=== PATIENT | female | born 1960 | race Caucasian/White ===

== ENCOUNTER 2017-04-21 21:57 | Emergency (ER) | payer OTHER | END 2017-04-22 00:45 | disposition home or self-care (01) | LOC: D.ER 21:57 | DX: L02.211 Cutaneous abscess of abdominal wall (principal); E11.9 Type 2 diabetes mellitus without complications ==

== ENCOUNTER 2017-04-22 16:58 | Emergency (ER) | payer OTHER | END 2017-04-22 18:27 | disposition home or self-care (01) | LOC: D.ER 16:58 | DX: L03.314 Cellulitis of groin (principal) ==

== ENCOUNTER 2018-12-13 00:22 | Inpatient (IN) | payer OTHER ==
[2018-12-13] VITALS (8 sets, daily range): BP systolic 122–171; BP diastolic 58–109; Ht 162.6 cm; Wt 106.2 kg
[~2018-12-13] VITALS: Ht 162.6 cm; Wt 106.2 kg
--- NOTE | ~2018-12-13 | HEMODYNAMI ---
PATIENT:DORA SAEED MEDICAL RECORD: [id number] : 56 LOCATION:[facility] D.2117 [facility]# [id number] ADMISSION DATE: 12/13/18 Generatedon:12/13/201810:48 Patient name: DORA SAEED Patient #: [id number] : 1960 Date of study: 12/13/2018 Page: Of Hemodynamic Procedure Report Patient Data Patient Demographics Procedure consent was obtained First Name: DORA Gender: Female Last Name: DARLIN : 1960 Middle Initial: J Age: 58 year(s) Patient #: [id number] Race: SSN: [id number] Additional ID: [id number] Contact details Address: [address] [place] [address] State: [place] City: [facility] Zip code: [address] Past Medical History Allergies Allergen Reaction Date Comments Reported Other allergy 12/13/2018 naproxen Admission Admission Data Admission Date: 12/13/2018 Admission Time: 2:34 Arrival Date: 12/13/2018 Arrival Time: 0:00 Admit Source: Emergency Insurance Payor: Private department health insurance Room #: D.2117 [facility] #: [id number] Height (in.): 64 BSA: 2.12 (m2) Height (cm.): 162.56 BMI: 41.63 (kg/m2) Weight (lbs.): 242.51 Weight (kg.): 110 Lab Results Lab Result Date: 12/13/2018 Lab Result Time: 0:46 Biochemistry Name Units Result Min Max BUN mg/dl 16 --(---*)-- 7 18 Creatinine mg/dl 0.9 --(-*--)-- 0.6 1.3 CBC Name Units Result Min Max Hematocrit % 45.3 --(-*--)-- 42 54 Hemoglobin g/dl 16.3 --(--*-)-- 13.5 17.5 Procedure Procedure Types Cath Procedure Diagnostic Procedure [facility] w/Coronaries PCI Procedure Coronary Stent Coronary Stent Initial Procedure Description Procedure Date Procedure Date: 12/13/2018 Procedure Start Time: 10:08 Procedure End Time: 10:45 Procedure Staff Name Function Bernabe Betts RT Monitor Migel Maldonado RN Nurse Kingston Frey MD Performing Physician Jaret Cunningham RT Scrub Procedure Data Cath Procedure Fluoroscopy Diagnostic fluoroscopy Total fluoroscopy Time: 6.6 time: 6.6 min min Diagnostic fluoroscopy Total fluoroscopy dose: dose: 1509 mGy 1509 mGy Contrast Material Contrast Material Type Amount (ml) Isovue 300 134 Entry Location Entry Primary Successful Side Size Upsize Upsize Entry Closure Succes sful Closure Location (Fr) 1 (Fr) 2 (Fr) Remarks Device Remarks Femoral Right 5 Fr 6 Fr Exoseal artery Short Estimated blood loss: 20 ml Diagnostic catheters Device Type Used For End Catheter Placement MULTIPACK JL 4.0 5Fr Procedure catheter MULTIPACK 3DRC 5Fr Procedure catheter MULTIPACK Pigtail 5 Fr Procedure catheter Procedure Medications Medication Administration Route Dosage Oxygen etCO2 Nasal cannula 2 l/min Lidocaine 2% added to field 20 Heparin Flush Bag added to field 2 bags (1000units/500ml NS) 0.9% NaCl I.V. 100 ml/hr Heparin Bolus I.V. 4000 units Integrilin (Bolus I.V. 9.5 ml 2mg/ml) Versed I.V. 2 mg Fentanyl I.V. 100 mcg Integrilin (Bolus 9.5 ml 2mg/ml) Versed I.V. 2 mg Integrilin Drip I.V. drip 16.8 ml/hr (75mg/100ml) Plavix P.O. 600 mg Hemodynamics Rest BSA: 2.12 (m2) HGB: 16.3 (g/dl) O2 Consumption: Estimated: 234.11 (ml/min) O2 Co nsumption indexed: Estimated:110.43 (ml/min/m) Heart Rate: 111 (bpm) Pressure Samples Time Site Value (mmHg) Purpose Heart Use Rate(bpm) 10:14 LV 157/0,20 Snapshot 111 Snapshots Pre Cath Intra NCS Post Cath Vital Signs Time Heart Resp SPO2 etCO2 NIBP (mmHg) Rhythm Pain Sedation Rate (ipm) (%) (mmHg) Status Level (bpm) 10:05:43 112 17 95 18 137/86(100) NSR 0 (11) 10(A) , No pain 10:10:09 114 19 95 37.5 139/91(108) NSR 0 (11) 10(A) , No pain 10:16:01 113 19 95 34.5 141/94(108) NSR 0 (11) 10(A) , No pain 10:21:30 102 19 95 35.2 143/93(119) NSR 0 (11) 10(A) , No pain 10:26:58 111 20 96 35.9 142/93(119) NSR 0 (11) 10(A) , No pain 10:32:24 77 23 96 31.4 139/96(114) NSR 0 (11) 10(A) , No pain 10:37:46 83 20 96 0 140/90(109) NSR 0 (11) 10(A) , No pain 10:44:24 91 31 96 0 141/92(113) NSR 0 (11) 10(A) , No pain Medications Time Medication Route Dose Verified Delivered Reason Notes Effectiveness by by 9:59:23 Oxygen etCO2 2 Kingston Lainez used for Nasal l/min [facility] Esau Maldonado RN procedure cannula 9:59:30 Lidocaine 2% added 20ml Kingston Onofre for local to vial [facility] anesthetic field MD ROLON 9:59:55 Heparin Flush added 2 Kingston Loveory used for Bag to bags [facility] procedure (1000units/500ml field MD ROLON NS) 10:00:17 0.9% NaCl I.V. 100 Kingston Lainez Per physician ml/hr [facility] Esau Maldonado RN, MD 10:07:34 Versed I.V. 2 mg Kingston Lainez for sedation [facility] Esau Maldonado RN, MD 10:07:42 Fentanyl I.V. 100 Kingston Tobinie for sedation mcg St Esau Maldonado RN, MD 10:15:46 Heparin Bolus I.V. 4000 Kingston Lainez for verif ied units [facility] Esau Maldonado RN anticoagulation with dr MD watts 10:16:58 Integrilin I.V. 9.5 Kingston Buffie for waste d (Bolus 2mg/ml) ml St Esau Maldonado RN antiplatelet .5 ml of MD therapy vial 10:25:55 Versed I.V. 2 mg Kingston Onofre for sedation ShanteEsau Frey MD, MD 10:27:47 Integrilin I.C 9.5 Kingston [place] waste d (Bolus 2mg/ml) ml St Esau Frey antiplatelet 0.5 ml MD ROLON therapy of vial 10:35:58 Integrilin Drip I.V. 16.8 Kingston Lainez for (75mg/100ml) drip ml/hr [facility] Esau Maldonado RN antiplatelet therapy 10:47:47 Plavix P.O. 600 Kingston Lainez for mg [facility] Esau Maldonado RN antiplatelet therapy Procedure Log Time Note 9:28:05 Informed consent obtained and on chart 9:35:48 Admit Source: Emergency department 9:35:50 Arrival Date: 12/13/2018 12:00:00 AM 9:36:02 Patient Weight : 242.51 lbs 9:36:34 Patient Height : 64 inches 9:36:58 Insurance Payor : Private health insurance 9:42:12 Lab Result : Hemoglobin 16.3 g/dl 9:42:12 Lab Result : Hematocrit 45.3 % 9:42:12 Lab Result : BUN 16 mg/dl 9:42:12 Lab Result : Creatinine 0.9 mg/dl 9:42:37 Diagnostic Cath Status : Urgent 9:42:50 ACC Patient presents with Non-STEMI CCS Anginal Class 4--Inability to carry out any physical activity w/o angina. Angina may occur at rest. 9:42:55 Procedure Status Urgent Heart Cath (IP). 9:42:59 Bernabe Betts RT(R) (CV) sent for patient. Start room use. 9:43:01 Time tracking: Regular hours (M-F 7:00 - 5:00) 9:43:04 Plan of Care:Hemodynamics will remain stable., Cardiac rhythm will remain stable., Comfort level will be maintained., Respiratory function will remain adequate., Patient/ family verbilizes understanding of procedure., Procedure tolerated without complication., Recovers from procedure without complications.. 9:43:24 H&P Date Dictated: 12/13/2018 Within 30 days and on chart.. 9:49:03 ACCPatient has been prescribed/administered the following anti-anginal medication within the last 2 weeks: None 9:49:34 Patient received from PCU to CCL 1 Alert and oriented. Tansferred to table in Supine position. 9:49:35 Warm blankets applied, and radha hugger turned on for patient comfort. 9:49:36 Correct patient and procedure confirmed by team. 9:49:37 ECG and BP/O2 sat monitors applied to patient. 9:49:41 Pre-procedure instructions explained to patient. 9:49:42 Pre-op teaching completed and patient verbalized understanding. 9:49:44 Family in waiting room. 9:49:46 Patient NPO since Midnight. 9:49:57 Patient allergic to Other allergynaproxen 9:59:23 Oxygen 2 l/min etCO2 Nasal cannula was administered by Migel Maldonado RN; used for procedure; 9:59:30 Lidocaine 2% 20ml vial added to field was administered by Kingston Frey MD; for local anesthetic; 9:59:55 Heparin Flush Bag (1000units/500ml NS) 2 bags added to field was administered by Kingston Frey MD; used for procedure; 10:00:17 0.9% NaCl 100 ml/hr I.V. was administered by Migel Maldonado RN; Per physician; 10:02:19 Is the patient allergic to Iodine/contrast media? No. 10:02:57 Is patient on blood thinner?No 10:03:03 Patient diabetic? Yes. 10:03:04 If diabetic: On Metformin? No 10:03:24 Patient not . Patient is over age 55. 10:03:26 ----Pre-sedation anethsthesia assessment.---- 10:03:37 Previous problem with sedation/anesthesia? No ? 10:03:39 Snore? Yes 10:03:41 Sleep apnea? No 10:03:44 Deviated septum? No 10:03:45 Opens mouth fully? Yes 10:03:46 Sticks out tongue? Yes 10:03:56 Dentures? No ? 10:04:05 Pre procedure: right dorsailis pedis pulse 2+ Normal; easily identifiable; not easily obliterated 10:04:10 Patient pain scale 3/10 ?. 10:04:25 IV patent on arrival in right hand with 0.9% NaCl at O. 10:04:28 Lab results completed and on chart. 10:04:35 Right groin area was prepped with chlora-prep and draped in sterile fashion 10:04:37 Alarms reviewed by RMichelle N. 10:04:38 Sharps counted by scrub and verified by R.N. 10:05:15 2) 60-89 Mildly reduced kidney function, and other findings (as for stage 1) point to kidney disease. 10:06:23 Maximum allowable contrast dose (3.7 X eGFR X 0.75)188 ml. 10:06:30 Sedation plan: IV Moderate Sedation Medication:Versed, Fentanyl 10:06:35 Physician arrived 10:06:36 Final Timeout: patient, procedure, and site verified with staff and physician. All members of the team are in agreement. 10:06:36 --------ALL STOP TIME OUT------ 10:06:40 Right groin site verified by team. 10:06:46 Fire Safety Assessment: A--An alcohol-based skin anteseptic being used preoperatively., C--Open oxygen or nitrous oxide is being used., D--An ESU, laser, or fiber-optic light is being used. 10:06:51 Physical assessment completed. ASA score P 2 - A patient with mild systemic disease as per Kingston Frey MD. 10:07:34 Versed 2 mg I.V. was administered by Migel Maldonado RN; for sedation; 10:07:42 Fentanyl 100 mcg I.V. was administered by Migel Maldonado RN; for sedation; 10:07:43 ACIST Syringe (31874) opened to sterile field. 10:07:44 Medline Cath Pack ([id number]) opened to sterile field. 10:07:45 Bag Decanter () opened to sterile field. 10:07:46 ACIST Manifold (12556) opened to sterile field. 10:07:46 ACIST Hand Control (39148) opened to sterile field. 10:07:47 Tegaderm 4 x 4 (1626W) opened to sterile field. 10:08:14 Use device set Femoral Dx 10:08:19 ACIST Syringe (78855) opened to sterile field. 10:08:28 DIAGNOSTIC Multipack 5Fr catheter set (MN7089) opened to sterile field. 10:08:31 SHEATH 5FR [place] (GUG389) opened to sterile field. 10:08:32 EMERALD Guide Wire (117-539) opened to sterile field. 10:08:38 Full Disclosure recording started 10:08:38 Procedure started. 10:08:43 Local anesthetic to right femoral artery with Lidocaine 2% by Kingston Frey MD.INITIAL ACCESS ONLY 10:08:56 A 5 Fr sheath was inserted into the Right Femoral artery 10:09:20 Zero performed for pressure channel P1 10::23 Zero performed for pressure channel P1 10:09:45 A MULTIPACK JL 4.0 5Fr catheter was advanced over the wire and used for Procedure. 10:11:20 LCA angiography performed. 10:13:44 Catheter removed. 10:13:50 A MULTIPACK 3DRC 5Fr catheter was advanced over the wire and used for Procedure. 10:13:55 RCA angiography performed. 10:13:57 Catheter removed. 10:14:02 A MULTIPACK Pigtail 5 Fr catheter was advanced over the wire and used for Procedure. 10:14:21 LV hemodynamics recorded. 10:14:23 LV gram done using SMALL 10:14:33 EF : 45 % 10:14:35 Catheter removed. 10:14:57 SHEATH 6FR [place] (MTA668) opened to sterile field. 10:14:58 WHISPER 300cm guide wire ([id number]) opened to sterile field. 10:14:59 INFLATOR Merit BasixCompak (KX6218) opened to sterile field. 10:15:11 Proceeding to intervention. 10:15:21 Sheath upsized to a 6 Fr Short. 10:15:46 Heparin Bolus 4000 units I.V. was administered by Migel Maldonado RN; for anticoagulation; verified with dr watts 10:16:17 GUIDE 6FR XBLAD 3.5 catheter ([id number]) opened to sterile field. 10:16:33 Pre PCI Site: [place] mLAD has 100% stenosis. 10:16:42 6 Fr XBLAD 3.5 guide catheter was inserted over the wire 10:16:58 Integrilin (Bolus 2mg/ml) 9.5 ml I.V. was administered by Migel Maldonado RN; for antiplatelet therapy; wasted .5 ml of vial 10:17:20 WHISPER wire advanced. 10:18:41 Wire advanced across lesion. 10:19:41 Inflate balloon Inflation number: 1 A EMERGE OTW 3.0 x 15 balloon ([id number]) was prepped and advanced across the Mid LAD 100, then inflated to 6 MIRACLE for 0:30 (min:sec) 40. 10:20:24 Vital chart was started 10:21:12 Inflation number: 2 The EMERGE OTW 3.0 x 15 balloon ([id number]) was reinflated across the Mid LAD 100, to 8 MIRACLE for 0:10 (min:sec) . 10:21:25 MULTIPLE INFLATIONS 10:23:16 VESSEL OPEN 10:25:10 Balloon removed over the wire. 10:25:55 Versed 2 mg I.V. was administered by Kingston Frey MD; for sedation; 10:27:47 Integrilin (Bolus 2mg/ml) 9.5 ml I.C was administered by Kingston Frey MD; for antiplatelet therapy; wasted 0.5 ml of vial 10::27 Place stent Inflation Number: 3 A TOMAS OTW 3.0 x 18 stent ([id number]) was prepped and advanced across the Mid LAD 90. The stent was deployed at 14 MIRACLE for 0:30 (min:sec) 0. 10:29:06 Stent catheter was removed intact over wire. 10:32:08 Place stent Inflation Number: 1 A TOMAS OTW 3.5 x 30 stent ([id number]) was prepped and advanced across the Prox LAD 99. The stent was deployed at 12 MIRACLE for 0:30 (min:sec) 0. 10:33:01 Inflation number: 1 The stent balloon was then re-inflated across the Dist LAD 98 to 4 MIRACLE for 0:10 (min:sec) 0. 10:33:05 Wire removed. 10:33:05 Stent catheter was removed intact over wire. 10:33:06 Guide catheter removed. 10:33:21 EXOSEAL 6Fr (EX600) opened to sterile field. 10:35:20 Sheath removed intact; hemostasis achieved with Exoseal to the Right Femoral artery. 10:35:22 Procedure ended.(Physican Out) 10:35:33 Fluoroscopy time 06.60 minutes. 10:35:39 Fluoroscopy dose: 1509 mGy 10:35:39 Flurop Dose total: 1509 10:35:46 Dose Area Product 35572 mGy/cm. 10:35:51 Contrast amount:Isovue 300 134ml. 10:35:54 Maximum allowable dose exceeded? No. 10:35:58 Integrilin Drip (75mg/100ml) 16.8 ml/hr I.V. drip was administered by Migel Maldonado RN; for antiplatelet therapy; 10:35:59 Sharps counted by scrub and verified by R.N. 10:38:15 ACT drawn and resulted at 188 seconds. (normal therapeutic range 180-240 seconds). 10:39:29 Insertion/operative site no bleeding no hematoma. 10:39:33 Post-op/insertion site Right Femoral artery dressed using a 4 x 4 and Tegaderm. 10:39:36 Post right femoral artery:stable 10:39:39 Post Procedure Pulses reassessed and unchanged 10:39:44 Post-procedure physical assessment completed. ASA score P 2 - A patient with mild systemic disease as per Kingston Frey MD. 10:39:49 Post procedure rhythm: sinus rhythm 10:39:52 Estimated blood loss: 20 ml 10:39:58 Patient needs reinforcement of post procedure teaching. 10:39:59 Procedure and supply charges have been captured, reviewed, submitted and are correct. 10:40:12 Procedure type changed to Cath procedure, Diagnostic procedure, LHC, LHC w/Coronaries, PCI procedure, Coronary Stent, Coronary Stent Initial 10:45:03 Vital chart was stopped 10:45:04 See physician's report for complete and final results. 10:45:07 Report given to Med II. 10:45:12 Patient transfered to Med II with Bed. 10:45:15 Full Disclosure recording stopped 10:45:15 Procedure ended. 10:45:21 End room use (Document Last) 10:45:29 ACC-PCI Only Patient was given prescriptions, or instructed by Kingston Frey MD to start/continue the following medications upon discharge: Aspirin, Plavix 10:45:41 ACCDominant side:Co-Dominant 10:46:00 ACC Pre-intervention ALICIA Flow is 0. 10:46:03 ACC Post-intervention ALICIA Flow is 3. 10:47:47 Plavix 600 mg P.O. was administered by Migel Maldonado RN; for antiplatelet therapy; Intervention Summary Intervention Notes Time ActionType Lesion and Equipment Action# Pressure Duration Attributes Used 10:19:41 Inflate Mid LAD EMERGE OTW 1 6 00:30 balloon 3.0 x 15 balloon ([id number]) 10:21:12 Reinflate Mid LAD EMERGE OTW 2 8 00:10 balloon 3.0 x 15 balloon ([id number]) 10:28:27 Place stent Mid LAD TOMAS OTW 3.0 3 14 00:30 x 18 stent ([id number]) 10:32:08 Place stent Prox LAD TOMAS OTW 3.5 1 12 00:30 x 30 stent ([id number]) 10:33:01 Reinflate Dist LAD TOMAS OTW 3.5 1 4 00:10 stent x 30 stent balloon ([id number]) Device Usage Item Name Manufacture Quantity Catalog Number Hospital Part Current M inimal Lot# / Charge Number Stock Stock Serial# Code ACIST Syringe Acist 2 32981 970937 917107 859306 2 0 (36450) Medical Systems Mismi Medline Cath Medline 1 [id number] 285746 97522 496541 5 Pack ([id number]) Bag Decanter Microtek 1 2001S 431626 07557 320467 5 (2001S) Medical Inc. ACIST Hand Acist 1 80651 745562 057346 899069 5 Control Medical (49402) Systems Inc ACIST Acist 1 76743 425884 513795 945346 5 Manifold Medical (75482) Systems Inc Tegaderm 4 x 3M 1 1626W 566129 157975 895477 5 4 (1626W) DIAGNOSTIC Cardinal 1 NJ3975 310906 06748 265678 3 0 Multipack 5Fr Health catheter set (XI9437) SHEATH 5FR Terumo 1 RJU732 678794 969130 605764 5 [place] (EFU098) EMERALD Guide Cardinal 1 502-455 567869 363468 022865 5 Wire Health (502-455) MULTIPACK JL Cardinal 1 703420 5 4.0 5Fr Health catheter MULTIPACK Cardinal 1 320154 5 3DRC 5Fr Health catheter MULTIPACK Cardinal 1 262028 5 Pigtail 5 Fr Health catheter SHEATH 6FR Terumo 1 EHE553 639201 908339 607843 4 0 [place] (THE430) WHISPER 300cm Hernandez 1 [id number] 047296 724034 285832 5 guide wire Vascular ([id number]) INFLATOR Merit 1 EB9723 712008 609515 209220 1 5 [facility] BasixCompak (VZ4926) GUIDE 6FR Cardinal 1 [id number] 353071 598285 113661 1 0 XBLAD 3.5 Health catheter (08878114) EMERGE OTW [place] 1 [id number] 050830 910486 209434 5 [id number] 3.0 x 15 Scientific balloon ([id number]) TOMAS OTW 3.0 Medtronic 1 [id number] 953381 2130481 967652 5 [id number] x 18 stent ([id number]) TOMAS OTW 3.5 Medtronic 1 [id number] 058187 0177268 624833 5 [id number] x 30 stent ([id number]) EXOSEAL 6Fr Cardinal 1 EX600 166755 104992 412363 1 0 (EX600) Health Signature Audit [place] Stage Time Signature Unsigned Intra-Procedure 12/13/2018 Bernabe Betts 10:48:03 AM RT(R) (CV) Signatures Monitor : Bernabe Betts RT Signature : Date : Time : Nurse : Migel Maldonado RN Signature : Date : Time : Performing Physician : Signature : Kingston Frey MD Date : Time : [facility] [address] [place] [address]
[2018-12-13 00:53] LABS: HEMATOCRIT 45.3 % (36.0-48.0); HEMOGLOBIN 16.3 g/dL (12-16); MCH 31.3 pg (26.0-34.0); MCV 86.9 fL (80.0-100.0); MEAN PLATELET VOLUME 11.1 fL (7.4-10.4); PLATELET COUNT 228 10x3/uL (130-400); RBC 5.21 10x6/uL (4.00-5.40); RDW 12.2 % (11.5-14.5); WBC 6.5 10x3/uL (4.8-10.8)
[2018-12-13 01:07] LABS: KETONE - SERUM SMALL mg/dL (NEGATIVE)
[2018-12-13 01:13] LABS: INR 0.86 (0.85-1.17); PROTIME 11.2 SECONDS (11.6-15.0)
[2018-12-13 01:14] LABS: D-DIMER-QUANTITATIVE 0.47 ug/mLFEU (0.20-0.54)
[2018-12-13 01:15] LABS: EOSINOPHILS 3 % (0-7); LYMPHOCYTES 48 % (15-50); MONOCYTES 8 % (2-11); NEUTROPHILS 36 % (40-80)
[2018-12-13 01:16] LABS: ALBUMIN 3.5 g/dL (3.4-5.0); ALKALINE PHOSPHATASE 180 U/L (46-116); ALT (SGPT) 31 U/L (10-68); CALC OSMOLALITY 296 mosm/kg (275-300); CALCIUM 9.2 mg/dL (8.5-10.1); CARBON DIOXIDE 23.7 mmol/L (21.0-32.0); CHLORIDE - SERUM 100 mmol/L (98-107); CKMB 1.9 U/L (0.0-3.6); CREATINE KINASE 119 UL (21-215); CREATININE - SERUM 0.9 mg/dL (0.6-1.3); MAGNESIUM - SERUM 1.6 mg/dL (1.8-2.4); PLATELET ESTIMATE NORMAL; POTASSIUM - SERUM 3.5 mmol/L (3.5-5.1); PROTEIN - SERUM 7.3 g/dL (6.4-8.2); SODIUM 138 mmol/L (136-145); TROPONIN-I 0.026 ng/mL (0.000-0.060); UREA NITROGEN 16 mg/dL (7-18); eGFR NON AFRICAN AMERICAN 68 mL/min (90-120)
[2018-12-13 01:20] LABS: GLUCOSE 462 mg/dL (74-106)
[2018-12-13 08:08] LABS: CKMB 23.6 U/L (0.0-3.6)
[2018-12-13 08:14] LABS: CREATINE KINASE 255 UL (21-215)
[2018-12-13 08:16] LABS: TROPONIN-I 0.713 ng/mL (0.000-0.060)
[2018-12-13 08:31] LABS: CALCIUM 8.5 mg/dL (8.5-10.1); CARBON DIOXIDE 18.9 mmol/L (21.0-32.0); CHLORIDE - SERUM 103 mmol/L (98-107); CREATININE - SERUM 0.7 mg/dL (0.6-1.3); SODIUM 138 mmol/L (136-145); UREA NITROGEN 13 mg/dL (7-18); eGFR NON AFRICAN AMERICAN 90 mL/min (90-120)
[2018-12-13 08:32] LABS: CALC OSMOLALITY 291 mosm/kg (275-300); GLUCOSE 383 mg/dL (74-106); POTASSIUM - SERUM 4.3 mmol/L (3.5-5.1)
[2018-12-13 09:40] LABS: BASOPHILS 0.3 % (0-2); EOSINOPHILS 0 % (0-7); HEMATOCRIT 45.1 % (36.0-48.0); HEMOGLOBIN 15.6 g/dL (12-16); IMMATURE GRANULOCYTES 0.4 % (0-5); MCH 30.2 pg (26.0-34.0); MCHC 34.6 g/dL (31.0-37.0); MCV 87.2 fL (80.0-100.0); MEAN PLATELET VOLUME 11.6 fL (7.4-10.4); MONOCYTES 2.3 % (2-11); PLATELET COUNT 247 10x3/uL (130-400); RBC 5.17 10x6/uL (4.00-5.40); RDW 12.3 % (11.5-14.5)
[2018-12-13 09:41] LABS: WBC 9.2 10x3/uL (4.8-10.8)
--- NOTE | 2018-12-13 14:30 | CN ---
PATIENT NAME:DORA SAEED MEDICAL RECORD: [id number] : 56 LOCATION:D. D.2117 ADMIT DATE: 12/13/18 ACCOUNT: [id number] CONSULTING PHYSICIAN: LYNETTE RAMÍREZ MD REFERRING PHYSICIAN: EMMA JAMES MD DATE OF CONSULTATION: 12/13/2018 HISTORY OF PRESENT ILLNESS: A 58-year-old female with history of dietary controlled diabetes as well as hypertension, awoke this morning with chest pressure and tightness, radiating to the jaw kind of shortness of breath, some nausea, found to have elevated cardiac enzymes consistent with NSTEMI. She did have intermittent pain. We are asked to see her concerning her cardiovascular status. PAST MEDICAL HISTORY: Includes: 1. History of diabetes mellitus, on no medications. 2. Hypertension, dietary controlled again. MEDICINES: None chronically. ALLERGIES: NAPROSYN. SOCIAL HISTORY: Nonsmoker, nondrinker. Does try to exercise. REVIEW OF SYSTEMS: The patient reports easy bruising but reports no swollen glands. The patient reports no fever, no night sweats, no significant weight gain, no significant weight loss. No significant exercise tolerance. The patient reports no dry eyes, no irritation, no vision change. Patient reports no difficulty hearing and no ear pain. Patient reports no frequent nose bleeds or nose and sinus problems. Patient reports on arm pain on exertion. No shortness of breath while lying down. No history of heart murmur. Patient reports no cough, no wheezing or coughing up blood. Patient reports no abdominal pain, no vomiting. Normal appetite. No diarrhea and not vomiting blood. No nausea and no constipation. Patient reports no incontinence. No difficulty urinating. No hematuria. No increased frequency. Patient reports no muscle aches. No weakness, no arthralgias, no back pain. No swelling of the extremities. Patient reports no abnormal mole, no jaundice, no rashes. Reports no loss of consciousness. No weakness and no numbness. No seizures, dizziness, or headaches. The patient reports no depression, no sleep disturbance, feeling safe in a relationship and no alcohol abuse. Patient reports on fatigue. Reports no runny nose or sinus pressure. No itching, no hives, and no frequent sneezing. PHYSICAL EXAMINATION: GENERAL: Pleasant. No acute distress, appears stated age. VITAL SIGNS: Blood pressure 157/86, pulse 114 and regular. HEENT: Normocephalic, atraumatic. NECK: No bruits noted. HEART: Regular, II/ systolic ejection murmur. LUNGS: Good air excursion. ABDOMEN: Soft, nontender. EXTREMITIES: Pulses 2+ with no edema. DIAGNOSTIC DATA: ECG shows poor R-wave progression, left axis deviation. CONSULT REPORT [id number] DORA SAEED IMPRESSION: NSTEMI. PLAN: For angiography, intervention based on above. TRANSINT:[id number] Voice Confirmation ID: [id number] DOCUMENT ID: [id number] LYNETTE RAMÍREZ MD at 1430 CC: [id number] DICTATION DATE: 12/13/18 1004 AUTO TUNE UP MECHANIC: 12/13/18 1045 ADM IN [address] [address]
--- NOTE | 2018-12-13 14:30 | OP ---
PATIENT NAME: DORA SAEED MEDICAL RECORD: [id number] :56 LOCATION:D.M2 D.2117 ADMISSION DATE:12/13/18 SURGEON: LYNETTE RAMÍREZ MD DATE OF OPERATION: 12/13/2018 PROCEDURE: Left heart catheterization, selective coronary angiography, right femoral artery approach. CATHETERS: A 5-Macedonian sheath, 5/4 left and right Jake, 5/4 pig. The procedure was well tolerated. The patient was returned to vieyra. Sheath removed. ExoSeal device placed. FINDINGS: Left ventriculography shows mid anterior wall down to the anterior apical hypokinesis. Overall, LV function reduced at 40%. CORONARY ANATOMY: LEFT MAIN: Left main is free of disease. LAD: Appears to fill just past the first diagonal, is totally occluded. CIRCUMFLEX: Codominant system, free of disease. RIGHT CORONARY ARTERY: Again, codominant, free of disease. IMPRESSION: Acute NSTEMI, Total occlusion of the LAD. PLAN: Intervention momentarily. DESCRIPTION OF PROCEDURE: A 5-Macedonian sheath was exchanged for a 6-Macedonian sheath. XB LAD 3.5 guide catheter provided excellent guide catheter support, followed by 300 cm Whisper wire placed across the totally occluded LAD down this portion of vessel. Pre-deployment balloon used was a 3.0 x 15 [place]. This showed improvement in ALICIA flow from 0 to 1, however, there was marked thrombus burden around the area. Therefore, IC Integrilin was infused. Next, is replacement in the following fashion: A 3.0 x 15 and a 3.5 x 30-mm, both Golden Eagle drug-eluting stent up to 14 atmospheres for 45 seconds. This showed excellent resolution of 100% stenosis, no significant residual. Distally, the flow improved to the apex with ALICIA flow 2. The patient was started on Integrilin drip. Sheath was closed with ExoSeal device. Plavix was loaded in the lab. TRANSINT:[id number] Voice Confirmation ID: [id number] DOCUMENT ID: [id number] LYNETTE RAMÍREZ MD at 1430 CC: [id number] DICTATION DATE: 12/13/18 1056 PULVI MIXER OPERATOR: 12/13/18 1123 ADM IN [place] [id number] [place] [address]
[2018-12-13 15:42] LABS: APPEARANCE CLEAR (CLEAR); BILIRUBIN NEGATIVE (NEGATIVE); COLOR YELLOW (YELLOW); GLUCOSE 1000 mg/dL (NEGATIVE); KETONE MODERATE mg/dL (NEGATIVE); NITRITE NEGATIVE (NEGATIVE); PROTEIN NEGATIVE (NEGATIVE); SPECIFIC GRAVITY 1.015 (1.005-1.020); UROBILINOGEN NORMAL (NORMAL)
[2018-12-14 00:10] VITALS: BP 131/81
[2018-12-14 04:00] VITALS: BP 133/83
[2018-12-14 06:29] LABS: BASOPHILS 0.2 % (0-2); EOSINOPHILS 0.2 % (0-7); HEMATOCRIT 42.2 % (36.0-48.0); HEMOGLOBIN 14.6 g/dL (12-16); IMMATURE GRANULOCYTES 0.3 % (0-5); LYMPHOCYTES 27.3 % (15-50); MCH 30.4 pg (26.0-34.0); MCHC 34.6 g/dL (31.0-37.0); MCV 87.7 fL (80.0-100.0); MEAN PLATELET VOLUME 11.2 fL (7.4-10.4); PLATELET COUNT 216 10x3/uL (130-400); RBC 4.81 10x6/uL (4.00-5.40); RDW 12.6 % (11.5-14.5); WBC 9.3 10x3/uL (4.8-10.8)
[2018-12-14 06:51] LABS: CALCIUM 8.2 mg/dL (8.5-10.1); CHLORIDE - SERUM 104 mmol/L (98-107); CREATININE - SERUM 0.7 mg/dL (0.6-1.3); MAGNESIUM - SERUM 1.6 mg/dL (1.8-2.4); PHOSPHOROUS 2.8 mg/dL (2.5-4.9); SODIUM 140 mmol/L (136-145); eGFR NON AFRICAN AMERICAN 90 mL/min (90-120)
[2018-12-14 06:53] LABS: CALC OSMOLALITY 285 mosm/kg (275-300); CARBON DIOXIDE 23.9 mmol/L (21.0-32.0); GLUCOSE 253 mg/dL (74-106); POTASSIUM - SERUM 3.4 mmol/L (3.5-5.1); UREA NITROGEN 8 mg/dL (7-18)
[2018-12-14 09:21] VITALS: BP 132/81
[2018-12-14] MEDS ORDERED: LIPITOR20 MG PO (12:24)
[2018-12-14] MEDS ORDERED: PLAVIX75 MG PO (12:24)
[2018-12-14] MEDS ORDERED: LOPRESSOR25 MG PO (12:24)
[2018-12-14] MEDS ORDERED: ASPIRIN325 MG PO (12:24)
[2018-12-14] MEDS ORDERED: GLIPIZIDE10 MG PO (12:25)
[2018-12-14] MEDS ORDERED: COZAAR25 MG PO (12:25)
[2018-12-14 13:54] VITALS: BP 91/52
--- NOTE | 2018-12-15 09:04 | MORECARE ---
CASE MANAGEMENT DISCHARGE SUMMARY PATIENT: DORA SAEED UNIT: [id number] ADM DATE: 12/13/18 AGE: 58 : 56 SEX: F ROOM/BED: D.0277 AUTHOR: PETERSON RICH PHYSICIAN: REFERRING PHYSICIAN: EMMA JAMES MD DATE OF SERVICE: 12/15/18 Discharge Plan Patient Name: DORA SAEED Facility: [facility]:[place] : 1960 Planned Disposition: Home Anticipated Discharge Date: 12/14/18 Discharge Date: 12/14/2018 Expected LOS: 1 Initial Reviewer: [email or web address] Initial Review Date: 12/15/2018 Generated: 12/15/18 10:03 am Patient Name: DORA SAEED Page 06735 at 0904 All edits/amendments must be made on the electronic document DICTATION DATE: 12/15/18902 SQUAD LEADER: SADIE 12/15/18902 RPT#: [id number] DC DATE:12/14/18 STATUS: DIS IN [facility] [address] [place] [address] END OF REPORT
== END 2018-12-14 15:30 | disposition home or self-care (01) | DRG 247 ==
LOC: D.ER 00:22 → D.M2 02:34
PROVIDERS: Family Medicine; Internal Medicine Interventional Cardiology; ADMIT Internal Medicine Nephrology; ATTEND Internal Medicine Nephrology
PROC: B2111ZZ Fluoroscopy of Multiple Coronary Arteries using Low Osmolar Contrast (ICD-10-PCS; 2018-12-13)
PROC: B2151ZZ Fluoroscopy of Left Heart using Low Osmolar Contrast (ICD-10-PCS; 2018-12-13)
PROC: 027035Z Dilation of Coronary Artery, One Artery with Two Drug-eluting Intraluminal Devices, Percutaneous Approach (ICD-10-PCS; principal; 2018-12-13 09:28)
PROC: 4A023N7 Measurement of Cardiac Sampling and Pressure, Left Heart, Percutaneous Approach (ICD-10-PCS; 2018-12-13 09:28)
DX: I21.4 Non-ST elevation (NSTEMI) myocardial infarction (principal); I25.110 Atherosclerotic heart disease of native coronary artery with unstable angina pectoris; I10 Essential (primary) hypertension; E11.9 Type 2 diabetes mellitus without complications; E83.42 Hypomagnesemia; I25.82 Chronic total occlusion of coronary artery; E66.01 Morbid (severe) obesity due to excess calories; Z68.39 Body mass index [BMI] 39.0-39.9, adult; Z87.891 Personal history of nicotine dependence

== ENCOUNTER 2019-03-18 01:08 | Emergency (ER) | payer OTHER ==
[~2019-03-18] VITALS: Ht 162.6 cm; Wt 102.3 kg
[~2019-03-18 01:08] MED LIST: ASPIRIN325 MG PO; COZAAR25 MG PO; GLIPIZIDE10 MG PO; LIPITOR20 MG PO; LOPRESSOR25 MG PO; PLAVIX75 MG PO
[2019-03-18 01:21] VITALS: Ht 162.6 cm; Wt 102.3 kg
[2019-03-18] MEDS ORDERED: GLUCOPHAGE500 MG PO (01:26)
[2019-03-18] MEDS ORDERED: SKELAXIN800 MG PO (03:45)
[2019-03-18 03:55] VITALS: BP 101/62
== END 2019-03-18 03:55 | disposition home or self-care (01) ==
LOC: D.ER 01:08
DX: S16.1XXA Strain of muscle, fascia and tendon at neck level, initial encounter (principal); V49.50XA Passenger injured in collision with unspecified motor vehicles in traffic accident, initial encounter; Y93.9 Activity, unspecified; Y92.9 Unspecified place or not applicable; E11.9 Type 2 diabetes mellitus without complications; Z79.84 Long term (current) use of oral hypoglycemic drugs; M54.89 Other dorsalgia

== ENCOUNTER → 2019-04-05 14:05 | Outpatient (CLI) | payer OTHER ==
[2019-03-18 01:21] VITALS: BMI 38.7
[~2019-04-05 14:05] MED LIST changes: +GLUCOPHAGE500 MG PO; +SKELAXIN800 MG PO
--- NOTE | 2019-04-07 11:31 | EC ---
PATIENT:DORA SAEED DATE OF SERVICE: 04/05/19 SEX: F MEDICAL RECORD: [id number] DATE OF : 56 LOCATION:[facility] AGE OF PATIENT: 58 ADMISSION DATE: 04/05/19 REFERRING PHYSICIAN: INTERPRETING PHYSICIAN: LYNETTE RAMÍREZ MD ECHOCARDIOGRAM REPORT ECHO CHARGES 4 ECHO COMPLETE Date: 04/05/19 CLINICAL DIAGNOSIS: CARDIOMYOPATHY H/O HTN/CAD ECHOCARDIOGRAPHIC MEASUREMENTS (adult normal given) AC root (d.<3.7cm) 2.8 cm LV Septum d (<1.2 cm> 1.0 cm Valve Excursion 1.8 cm LV Septum (systole) 1.5 cm Left Atria (s.<4.0cm> 3.8 cm LVPW d(<1.2cm) 1.0 cm RV (d.<2.3cm) 2.8 cm LVPW (sytole) 1.4 cm LV diastole(<5.6CM) 5.6 cm MV E-F(>70mm/sec) cm LV systole 4.3 cm LVOT Diameter 1.8 cm MV exc.(>10mm) cm Est.ejection fraction (50-75%) % DOPPLER: LVIT cm/sec A 89.0 cm/sec E 116 cm/sec LA cm/sec RVSP 24.2 mmHg LVOT 78.0 cm/sec AOP1/2T m/s Asc. 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 Stinson TAPE# PACS Pericardial Effusion N DATE OF SERVICE: 04/05/2019 Adequate 2D, color flow, spectral Doppler, and M-Mode. No LVH. LV internal dimensions are normal. LV is mildly globally hypokinetic with mildly reduced EF, estimated EF 40% to 45%. Aortic valve is tricuspid. No evidence of stenosis by Doppler interrogation. Left atrium is normal 3.8 cm. Mitral valve shows no prolapse. Trace MR. Right-side chamber is grossly normal. Trace TR. ECHOCARDIOGRAM REPORT [id number] DORA SAEED TRANSINT:[id number] Voice Confirmation ID: [id number] DOCUMENT ID: [id number] LYNETTE RAMÍREZ MD at 1131 CC: [id number] DICTATION DATE: 04/06/19 1506 MEDICAL STENOGRAPHER: 04/07/19 0034 DEP CLI 04/05/19 [id number] [place] [address]
== END | disposition home or self-care (01) ==
LOC: D.HCCECHO 14:05
PROVIDERS: ATTEND Internal Medicine Interventional Cardiology
DX: I42.9 Cardiomyopathy, unspecified (principal)